=== PATIENT | female | born 1995 | race Caucasian/White ===

== ENCOUNTER 2017-01-05 22:43 | Emergency (ER) | payer MEDICAID, OTHER ==
[~2017-01-05] VITALS: Ht 160 cm; Wt 68.0 kg
[~2017-01-05 22:43] MED LIST: IBUP-974 PO; PREN-502
[2017-01-05 22:45] VITALS: BP 124/70
--- NOTE | 2017-01-05 23:52 | NUR ---
PT TAKEN TO [facility]
--- NOTE | 2017-01-06 00:07 | NUR ---
21Y F BIB FAMILY C/O UTI SYMPTOMS X 3 DAYS, PT STATES THEIR IS BURNING SENSATION WHEN URINATING, PT DENIES ANY N/V/D, SOB, CP AT THE MOMENT. BREATHING IS UNLABORED. PT DENIES ANY MEDICAL HX AND NKA
--- NOTE | 2017-01-06 00:20 | NUR ---
Kiana valencia in [facility] - 01/06/17 at 0020 by [email or web address] PATIENT LEFT WITHOUT BEING SEEN BY DR. JACKSON. NO FURTHER CARE PROVIDED FOR PATIENT.
--- NOTE | 2017-01-06 00:20 | NUR ---
PATIENT ELOPED FROM FACILITY. DISCHARGE INSTRUCTIONS NOT GIVEN TO PATIENT. DR. RIOS NOTIFIED.
[2017-01-06 00:21] VITALS: BP 124/70
== END 2017-01-06 00:20 | disposition left against medical advice (07) ==
LOC: MED 22:43
DX: R30.0 Dysuria (principal); R31.9 Hematuria, unspecified; R10.13 Epigastric pain
CPT/HCPCS: 81002; 81025; 99282